=== PATIENT | female | born 1985 | race American Indian/Alaskan Native ===

== ENCOUNTER 2017-11-18 02:06 | Emergency (ER) | payer SELFPAY ==
[2017-11-18 04:13] LABS: Basophils # (Auto) 0.1 K/mm3 (0.0-0.1); Basophils % (Auto) 1.2 % (0.0-1.8); Eosinophils # (Auto) 0.7 K/mm3 (0.0-0.4); Eosinophils % (Auto) 8.2 % (0.0-4.3); Hematocrit 38.5 % (30.3-42.9); Hemoglobin 13.2 gm/dl (10.1-14.3); Lymphocytes # (Auto) 2.9 K/mm3 (1.2-5.4); Lymphocytes % (Auto) 36.1 % (13.4-35.0); Mean Corpuscular HGB Conc 34 % (30-34); Mean Corpuscular Hemoglobin 32 pg (28-32); Mean Corpuscular Volume 92 fl (79-97); Monocytes # (Auto) 0.6 K/mm3 (0.0-0.8); Monocytes % (Auto) 7.7 % (0.0-7.3); Platelet Count 235 K/mm3 (140-440)
[2017-11-18 04:24] LABS: INR 0.8 (0.87-1.13); Partial Thromboplastin Time 25.2 Sec. (24.2-36.6)
[2017-11-18 04:31] LABS: BUN/Creatinine Ratio 20; Blood Urea Nitrogen 14 mg/dL (7-17); Calcium 8.5 mg/dL (8.4-10.2); Hemolysis Index 13
--- NOTE | 2017-11-18 05:03 | XRay Report ---
FINAL REPORT EXAM: XR CHEST ROUTINE 2V HISTORY: shortness of breath TECHNIQUE: PA and lateral chest radiographs PRIORS: None. FINDINGS: No mediastinal shift. Cardiac silhouette is not enlarged. No pneumothorax, effusion, or focal pulmonary opacity. No acute skeletal finding. IMPRESSION: No focal pulmonary opacity.
[2017-11-18] MEDS ORDERED: NORCO 5/325 PO ONE (09:21)
[2017-11-18] MEDS ORDERED: MOTRIN PO ONE (09:21)
--- NOTE | 2017-11-18 09:23 | Emergency Department Report ---
[facility] Doc - Documentation Documentation: Patient is a 31-year-old black female states for the last week she's had some bilateral lower extremity edema. Patient states she also has a tight feeling in her legs feels as though the grandma explode. The patient states that yesterday she had some chest discomfort and shortness of breath and feels as though there is something wrapped around her upper abdomen. Patient states this sensation has diminished somewhat however she is mostly concerned today about her leg swelling. Brief physical exam patient's heart and lung exams are within normal limits. Patient does have 2+ sahra already up to the knees. X-ray is of the chest and laboratory studies are within normal limits. Patient has had 2 negative troponins. Patient recently for ultrasound of her legs to rule out DVT. If there is no DVT patient most likely has just dependent edema and will be started on Lasix and vascular surgery follow-up. Olman
[2017-11-18 10:38] VITALS: BP 94/51
--- NOTE | 2017-11-18 11:28 | Emergency Department Report ---
ED Extremity Problem HPI - General Chief complaint: Chest Pain Stated complaint: BILATERAL LEG,ABDOMINAL PAIN Time Seen by Provider: 11/18/17 09:07 Source: patient Mode of arrival: Ambulatory Limitations: No Limitations - History of Present Illness Initial comments: 31-year-old female past medical history bronchitis, obesity presents with complaint of approximately one week of lower extremity swelling and pressure. Patient denies fevers chills nausea vomiting. States she had slight chest discomfort which has since resolved. Patient is awake alert and oriented 3 not in acute distress reports no dyspnea at this time. Patient denies any new medication use. Denies any history of DVT or any recent surgeries any recent long distance travel. Denies any control use or hormone use otherwise. 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 MD Complaint: extremity swelling Onset/Timin -: week(s) Location: bilateral lower extremity Severity scale (0 -10): 8 - Related Data Previous Rx's Medication Instructions Recorded Last Taken Type Furosemide [Lasix] 20 mg PO QDAY #7 tablet 11/18/17 Unknown Rx Allergies Allergy/AdvReac Type Severity Reaction Status Date / Time latex Allergy Rash Verified 11/18/17 03:26 ED Review of Systems ROS: Stated complaint: BILATERAL LEG,ABDOMINAL PAIN Other details as noted in HPI Constitutional: denies: chills, fever Eyes: denies: eye pain, eye discharge, vision change ENT: denies: ear pain, throat pain Respiratory: denies: cough, shortness of breath, wheezing Cardiovascular: denies: chest pain, palpitations Endocrine: no symptoms reported Gastrointestinal: denies: abdominal pain, nausea, diarrhea Genitourinary: denies: urgency, dysuria, discharge Musculoskeletal: denies: back pain, joint swelling, arthralgia Skin: denies: rash, lesions Neurological: denies: headache, weakness, paresthesias Psychiatric: denies: anxiety, depression Hematological/Lymphatic: denies: easy bleeding, easy bruising ED Past Medical Hx - Past Medical History Previous Medical History?: Yes Additional medical history: Bronchitis - Surgical History Past Surgical History?: Yes Additional Surgical History: [place] teeth out - Social History Smoking Status: Current Every Day Smoker - Medications Home Medications: Home Medications Medication Instructions Recorded Confirmed Last Taken Type Furosemide [Lasix] 20 mg PO QDAY #7 tablet 05/07/18 Unknown Rx ED Physical Exam - General Limitations: No Limitations ED Course Vital Signs 11/18/17 11/18/17 03:29 10:32 Temperature 98.1 F 98.9 F Pulse Rate 66 68 Respiratory 20 Rate Blood Pressure 117/79 94/51 O2 Sat by Pulse 100 100 Oximetry ED Medical Decision Making - Lab Data Result diagrams: 11/18/17 03:56 11/18/17 03:56 - Medical Decision Making A/P: Lower extremity edema 1-Doppler negative for DVT bilaterally, chest x-ray shows no CHF unremarkable. Renal function is normal 2- HEARt score 1 points Low Score (0-3 points) Risk of MACE of 0.9-1.7%. 3-low-dose Lasix short course and follow-up with vascular. I advised patient to decrease amount of sodium intake in her diet and to return to the ED if she experiences chest pain shortness of breath worsened swelling difficulty walking. 4-vital signs stable for discharge. Follow-up with primary care and vascular Critical care attestation.: If time is entered above; I have spent that time in minutes in the direct care of this critically ill patient, excluding procedure time. ED Disposition Clinical Impression: Peripheral edema Disposition: DC-01 TO HOME OR SELFCARE Is pt being admited?: No Does the pt Need Aspirin: No Condition: Stable Instructions: Leg Edema (ED), Furosemide (By mouth) Prescriptions: Furosemide [Lasix] 20 mg PO QDAY #7 tablet Referrals: [facility] [Provider Group] - 3-5 Days GIO SPEARS MD [Staff Physician] - 3-5 Days ERAN ROSAS MD [Staff Physician] - 3-5 Days Forms: Accompanied Note, Work/School Release Form(ED) Time of Disposition: 11:45
== END 2017-11-18 11:55 | disposition home or self-care (01) ==
LOC: ED 02:06
DX: R60.9 Edema, unspecified (principal); F17.200 Nicotine dependence, unspecified, uncomplicated; Z91.040 Latex allergy status
CPT/HCPCS: 36415; 71046; 80048; 84484; 84703; 85025; 85610; 85730; 93005; 93010; 93970; 99284